=== PATIENT | female | born 1945 | race Caucasian/White ===

== ENCOUNTER 2017-03-11 10:13 | Day surgery (SDC) | payer MEDICARE ==
[2017-03-11] VITALS (8 sets, daily range): BP systolic 120–151; BP diastolic 59–90
[~2017-03-11] VITALS: Ht 165.1 cm; Wt 97.0 kg
[~2017-03-11 10:13] MED LIST: ASPI-586 PO; ATOR10TA PO; CTLP20T PO; IBP200T PO; LACTATED RINGERS 1,000 ML IV SCH; LIDOCAINE/EPINEPHRINE 1% 1:100,000 (XYLOCAINE) 30 ML VIAL INJ ONE; METO25TA60 PO; MULT-955 PO; MUPIROCIN 2% OINT 22 GM (BACTROBAN) TUBE TOP ONE; OMEP20TA33 PO; OXYMETAZOLINE 0.05% NASAL SPRAY (AFRIN) 15 ML BTL ONE; SHAR500C PO; SODIUM CHLORIDE FLUSH 3 ML SYR IV SCH
--- OUTSIDE RECORDS SUMMARY | 2017-03-11 10:17 | XMS REPORT | Continuity of Care Document ---
Author Author [facility] Organization [facility] Address Unknown Phone Unavailable Care Team Providers Care Apron Cleaner Name Role Phone No Pcp, Na PCP Unavailable Source Comments Some departments are not documenting in the electronic medical record. If you do not see the information that you expected, contact Release of Information in the Health Information Management department at [phone] for further assistance in locating additional records.[facility] Active Allergies and Adverse Reactions No Known Allergies Current Medications Prescription Sig. Disp. Refills Start End Date Status Date metoprolol XL (TOPROL XL) Take 12.5 mg by mouth Active 25 mg tablet daily. citalopram (CELEXA) 40 mg Take 40 mg by mouth Active tablet daily. Shark Cartilage 750 mg Take 1 Cap by mouth Active cap daily. Lutein 20 mg cap Take 1 Cap by mouth Active daily. FOLIC Take 1 Tab by mouth Active ACID/MULTIVIT-MIN/LUTEIN daily. (CENTRUM SILVER PO) Aloe Vera 5,000 mg cap Take 1 Cap by mouth Active daily. Lactobacillus rhamnosus Take 1 Cap by mouth twice Active GG (LACTOBACILLUS daily with meals. RHAMNOSUS (GG)) 15 billion cell cpSP diphenhydrAMINE Take 25 mg by mouth at Active (BENADRYL) 25 mg capsule bedtime daily. ibuprofen (MOTRIN) 200 mg Take 200 mg by mouth at Active tablet bedtime daily. Active Problems Problem Noted Date Carotid occlusion, right 12/13/2015 Social History Tobacco Use Types Packs/Day Years Used Date Former Smoker Last Filed Vital Signs Vital Sign Reading Time Taken Blood Pressure 138/78 12/06/2015 1:24 PM PRODUCT DEVELOPMENT COORDINATOR Pulse 88 12/06/2015 1:24 PM PRODUCT DEVELOPMENT COORDINATOR Temperature 37.5 C (99.5 F) 12/06/2015 1:23 PM PRODUCT DEVELOPMENT COORDINATOR Respiratory Rate 18 12/06/2015 1:23 PM PRODUCT DEVELOPMENT COORDINATOR Height 1.676 m (5' 6") 12/06/2015 1:23 PM PRODUCT DEVELOPMENT COORDINATOR Weight 93.35 kg (205 lb 12.8 oz) 12/06/2015 1:23 PM PRODUCT DEVELOPMENT COORDINATOR Body Mass Index 33.23 12/06/2015 1:23 PM PRODUCT DEVELOPMENT COORDINATOR Oxygen Saturation - - Plan of Care Health Maintenance Due Date Last Done Comments Hepatitis C Screening 1945 Physical (Comprehensive) 1954 Exam Pertussis Vaccine 1958 Tetanus Vaccine 1964 Breast Cancer Screening 1987 Colorectal Cancer 1997 Screening Shingles Vaccine 2007 Osteoporosis Screening 2012 Prevnar/Pneumovax (#1) 2012 Influenza Vaccine 07/25/2017 Results from Last 3 Months Not on file
[2017-03-11] MEDS: OXYMETAZOLINE 0.05% NASAL SPRAY (AFRIN) 15 ML BTL SCH ×3 (10:38→10:50)
[2017-03-11] MEDS ORDERED: SCOPOLAMINE 1.5 MG (TRANSDERM-SCOP) PATCH TD ONE (10:40)
[2017-03-11] MEDS ORDERED: ALFENTANIL 500 MCG/ML (ALFENTA) 5 ML AMP IV ONE (11:34)
[2017-03-11] MEDS ORDERED: PROPOFOL 20 ML IV ONE (11:34)
[2017-03-11] MEDS ORDERED: MIDAZOLAM 2 MG/2 ML (VERSED) VIAL ONE (11:34)
[2017-03-11] MEDS ORDERED: SUCCINYLCHOLINE 20 MG/ML 10 ML VIAL ONE (11:36)
[2017-03-11] MEDS ORDERED: ONDANSETRON 2 MG/ML (Z0FRAN) 2 ML VIAL ONE (12:05)
[2017-03-11] MEDS ORDERED: DEXAMETHASONE 10 MG/ML (DECADRON) VIAL ONE (12:06)
[2017-03-11] MEDS ORDERED: diphenhydrAMINE 50 MG/ML INJ (BENADRYL) ONE (12:06)
[2017-03-11] MEDS ORDERED: TRIAMCINOLONE TOP SCH (13:25)
[2017-03-11] MEDS ORDERED: NYSTATIN TOP SCH (13:25)
[2017-03-11] MEDS ORDERED: TRIAMCINOLONE ACET 40 MG/ML (KENALOG-40) 1 ML VIAL ONE (13:34)
[2017-03-11] MEDS ORDERED: ACETAMINOPHEN/CODEINE 300MG/30 MG (TYLENOL #3) TABLET PO PRN (14:15)
--- NOTE | 2017-03-11 14:23 | NUR ---
Pt returned from pacu sleepy but easy to arouse o2 stat 89% on RA. Pt assisted to recliner o2 sat monitored and ranged from 83-86% on RA on applied via n/c at 2L/min.
--- NOTE | 2017-03-11 14:26 | NUR ---
O2 87-88% ON 2L. INCREASED TO 2.5L VIA NC. WILL MONITOR SATS.
--- NOTE | 2017-03-11 14:42 | NUR ---
PATIENT STATES, "I'M READY TO GO HOME." PATIENT AND EDUCATED ON DISCHARGE REQUIREMENTS AND THAT PATIENT HAS NOT MET THESE REQUIREMENTS YET.
--- NOTE | 2017-03-11 14:57 | NUR ---
O2 REMOVED PER PATIENT REQUEST. PATIENT STATES SHE IS READY TO GO HOME. WILL MONITOR O2 SATS AND REAPPLY O2 NEEDED.
--- NOTE | 2017-03-11 15:19 | NUR ---
PATIENT AWAKE, ALERT, AND ORIENTEDX4. PATIENT CONTINUES TO STATE SHE IS READY TO GO HOME. O2 90-92% ON RA. PATIENT DENIES SHORTNESS OF AIR AND ANY DIFFICULTY BREATHING. Addendum: 03/11/17 at 1532 by Kandy Aguilar RN PATIENT O2 94% ON ADMISSION TO [facility].
--- NOTE | 2017-03-11 15:32 | NUR ---
PATIENT AND REMINDED OF IMPORTANCE OF SOMEONE STAYING WITH PATIENT THE REST OF TODAY. EDUCATED MORE ON OXYGEN SATURATION. PATIENT AND AGREE TO STAY A LITTLE LONGER TO MONITOR O2 SATURATION.
--- NOTE | 2017-03-11 15:52 | NUR ---
PATIENT AND EDUCATED ON TURN, COUGH, DEEP BREATHING 5-10 TIMES PER HOUR THROUGHOUT THE DAY TODAY. O2 SAT 93-96% ON RA. PATIENT AND VERBALIZE UNDERSTANDING WITH EDUCATION AND FEEL COMFORTABLE GOING HOME AT THIS TIME.
[2017-03-11] MEDS ORDERED: HYPERTONIC SALINE IRRIGATION 1000 ML BTL IR SCH (21:00)
--- NOTE | 2017-03-12 09:14 | OPERATIVE REPORT ---
DATE OF OPERATION: 03/11/2017 [facility] NO: [id number] PRE-OPERATIVE DIAGNOSIS: Chronic left sphenoid sinusitis. 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 OPERATIVE PROCEDURE: 1. Left endoscopic sphenoidotomy with removal of tissue. 2. Left endoscopic maxillary antrostomy. SURGEON: Donavan Irizarry M.D. ANESTHESIA: General endotracheal INDICATIONS: This is a 71-year-old female who was incidentally identified to have left sphenoid sinus disease on a dental CT scan. OPERATIVE FINDINGS: Left fungal sphenoid disease and accessory ostium with recirculation phenomenon left maxillary sinus. OPERATIVE NOTE: Following informed consent, the patient was taken to the Operating Room and placed in a supine position. Satisfactory general endotracheal anesthesia was obtained. The patient was prepped for surgery with Afrin nasal spray and 1% lidocaine with epinephrine. LEFT ENDOSCOPIC SPHENOIDOTOMY: The left side of the nose was endoscopically evaluated with a 0-degree 4-mm telescope. The septum was followed straight back medial to the middle turbinate and medial to the superior mediate to identify the opening of the sphenoid sinus. Mucopurulent drainage was suctioned from this area. Cultures were taken with a Luki trap. The sinus was opened with the suction microdebrider and thick debris was removed and irrigated from the sinus. Again, deep debris was sent as a culture and for MORRO prep and Gram stain. MORRO prep was positive for fungal debris. This sinus was opened with a Kerrison rongeur and with a suction microdebrider to greater than 12 mm size. Tissue and debris was removed from within the sinus and then this was irrigated with saline and suctioned until clear. The sphenoid sinus was wide open and most of this was done in an inferior direction from the top of the sinus at the natural ostium downward into the sphenoid rostrum. This sinus was irrigated with saline and then some nystatin and Kenalog cream was placed in the sinus and then a MeroGel pack was placed in the left sphenoid sinus. LEFT MAXILLARY ANTROSTOMY: Next the left side of the nose was again evaluated and the accessory ostium of the maxillary sinus was noted to allow drainage from the natural ostium to go back into the sinus causing a recirculation phenomenon. Because of this the uncinate process was removed and the natural ostium was clearly identified and this was joined to the accessory ostium using a backbiter and the suction microdebrider. A small MeroGel was placed in between the uncinate and the middle turbinate. Afrin packs were placed along the floor of the nose and the patient was awakened and taken to the recovery room in good condition.
== END 2017-03-11 15:55 | disposition home or self-care (01) ==
LOC: ASC 10:13
PROVIDERS: ATTEND Otolaryngology
DX: J32.3 Chronic sphenoidal sinusitis (principal); J32.0 Chronic maxillary sinusitis; J01.90 Acute sinusitis, unspecified; B48.8 Other specified mycoses; J34.89 Other specified disorders of nose and nasal sinuses; I10 Essential (primary) hypertension; E78.5 Hyperlipidemia, unspecified; E66.9 Obesity, unspecified; K21.9 Gastro-esophageal reflux disease without esophagitis; Z79.82 Long term (current) use of aspirin; Z87.891 Personal history of nicotine dependence; Z79.899 Other long term (current) drug therapy
CPT/HCPCS: 31256; 31288; 87070; 87107; 87205; 87220; 88305; 88312; A9270; J0330; J1100; J1200; J2250; J2405; J3301; J7120; 87075; 87102